=== PATIENT | female | born 2000 | race Caucasian/White ===

== ENCOUNTER 2022-11-30 13:29 | Outpatient (CLI) | payer BC, SELFPAY | END 2022-11-30 13:30 | disposition home or self-care (01) | LOC: NFLDREF 12-01 09:52 | PROVIDERS: Visit Provider Physician Assistant | DX: R30.0 Dysuria (principal); R10.9 Unspecified abdominal pain; M54.9 Dorsalgia, unspecified; M54.50 Low back pain, unspecified | CPT/HCPCS: 87086 ==

== ENCOUNTER 2025-02-24 13:20 | Outpatient (CLI) | payer BC, SELFPAY | END 2025-02-24 13:21 | disposition home or self-care (01) | LOC: NFLDUCREF 13:21 | PROVIDERS: Visit Provider Physician Assistant Surgical | DX: Z71.1 Person with feared health complaint in whom no diagnosis is made (principal) | CPT/HCPCS: 87086 ==